=== PATIENT | male | born 1970 | race Caucasian/White ===

== ENCOUNTER 2024-05-31 12:00 | Emergency (ER) | payer SELFPAY ==
[~2024-05-31] VITALS: Ht 167.6 cm; Wt 77.0 kg
[2024-05-31 12:35] VITALS: O2SAT 97
[2024-05-31] MEDS: KETOROLAC 15MG/ML VIAL IM ONE (20:08)
[2024-05-31] MEDS ORDERED: CYCL5TAB3 MT (20:27)
[2024-05-31] MEDS ORDERED: IBUP-2028 MT (20:27)
[2024-05-31 21:51] VITALS: BP 130/85; PULSE 94; RESP 18; TEMP 36.83628; O2SAT 97
== END 2024-05-31 21:54 | disposition home or self-care (01) ==
LOC: ER 12:00
DX: M25.511 Pain in right shoulder (principal); F17.200 Nicotine dependence, unspecified, uncomplicated
CPT/HCPCS: 99283; 73030; 96372; J1885